=== PATIENT | male | born 1930 | race Caucasian/White ===

== ENCOUNTER 2016-09-13 14:15 | Outpatient (RCR) | payer MEDICARE ==
[~2016-09-13 14:15] MED LIST: ASPIRIN E.C. 8181 MG PO; ATIVAN0.5 MG PO; CEPHALEXIN500 M1 PO; ELITE MAGNESIUM1 TAB PO; FERROUS SULFATE27 MG PO; FOLIC ACID800 MCG PO; NORCO 325 MG-51 TAB PO; PAXIL PO; POTASSIUM BICA PO; PRILOSEC20 MG PO; ZINC15 MG PO
== END 2016-09-17 12:21 | disposition home or self-care (01) ==
LOC: WSPT 14:15
DX: H81.11 Benign paroxysmal vertigo, right ear (principal)
CPT/HCPCS: G8978-GP; G8979-GP; G8980-GP

== ENCOUNTER 2018-04-17 14:30 | Outpatient (RCR) | payer MEDICARE | END 2018-06-18 | disposition home or self-care (01) | LOC: WSC | DX: M76.811 Anterior tibial syndrome, right leg (principal); R29.898 Other symptoms and signs involving the musculoskeletal system; Z79.82 Long term (current) use of aspirin; Z79.899 Other long term (current) drug therapy | CPT/HCPCS: G0283-GP; G8978-GP; G8979-GP ==

== ENCOUNTER 2018-05-20 18:25 | Emergency (ER) | payer MEDICARE ==
[~2018-05-20] VITALS: Ht 177.8 cm; Wt 75.0 kg
[2018-05-20 18:33] VITALS: BP 124/76; TEMP 97.8
[2018-05-20 20:18] VITALS: PULSE 80
== END 2018-05-20 20:18 | disposition home or self-care (01) ==
LOC: COL.ER 18:25
DX: S22.41XA Multiple fractures of ribs, right side, initial encounter for closed fracture (principal); K21.9 Gastro-esophageal reflux disease without esophagitis; W01.10XA Fall on same level from slipping, tripping and stumbling with subsequent striking against unspecified object, initial encounter

== ENCOUNTER 2018-09-30 15:00 | Outpatient (RCR) | payer MEDICARE | END 2018-10-09 16:43 | disposition home or self-care (01) | LOC: WSPT 15:00 | DX: M25.551 Pain in right hip (principal); M79.604 Pain in right leg | CPT/HCPCS: G8978-GP; G8979-GP ==

== ENCOUNTER 2018-10-14 09:03 | Day surgery (SDC) | payer MEDICARE ==
[~2018-10-14] VITALS: Ht 177.8 cm; Wt 80.8 kg
[2018-10-14 10:23] VITALS: BP 129/81; PULSE 90; TEMP 97.1
[2018-10-14] MEDS ORDERED: ASPIRIN E.C. 8181 MG PO (10:36)
[2018-10-14] MEDS ORDERED: FOLIC ACID0.8 MG PO (10:36)
[2018-10-14] MEDS ORDERED: MAGNESIUM GLUC500 MG PO (10:37)
[2018-10-14] MEDS ORDERED: FLOMAX 0.40.4 MG/CAP PO (10:37)
[2018-10-14] MEDS ORDERED: KLOR-CON 1010 MEQ PO (10:38)
[2018-10-14] MEDS ORDERED: PRILOSEC 20MG20 MG PO (10:38)
[2018-10-14] MEDS ORDERED: LOPRESSOR 225 MG/TAB PO (10:39)
[2018-10-14] MEDS ORDERED: FERROUS SU325 MG/TAB PO (10:39)
[2018-10-14] MEDS ORDERED: PAXIL40 MG PO (10:40)
[2018-10-14 11:08] VITALS: BP 136/82; PULSE 77; TEMP 97.4
--- NOTE | 2018-10-14 11:08 | NUR ---
Pt to [facility] via cart from OR. Pt drowsy, but arouses to verbal stimuli. Son in room. Pt denies pain or nausea. Pt wanting to sleep. Refusing po fluids at this time. Will continue to monitor. Call light within reach.
[2018-10-14 11:15] VITALS: BP 134/86; PULSE 73
--- NOTE | 2018-10-14 11:15 | NUR ---
Pt resting. Denies needs at this time. Call light within reach.
[2018-10-14 11:30] VITALS: BP 140/92; PULSE 73
--- NOTE | 2018-10-14 11:30 | NUR ---
Pt c/o abdominal pain 05/28. Explained to pt that gas pain is normal and he needs to try to pass the gas if he can. Warm blanket applied to his abdomen. Will continue to monitor. Call light within reach.
[2018-10-14 11:45] VITALS: BP 155/91; PULSE 77
--- NOTE | 2018-10-14 11:45 | NUR ---
Pt passing gas. Pt reports he is starting to feel better. Pt denies needs. Call light within reach.
[2018-10-14 12:00] VITALS: BP 130/90; PULSE 79
--- NOTE | 2018-10-14 12:00 | NUR ---
Pt continues to rest. Continues to feel better and is passing more gas without difficulties. Pt denies need for food or fluids.
--- NOTE | 2018-10-14 12:25 | NUR ---
Pt up to restroom with 2 standby assist. Pt voids without difficulties. Small amount of blood on chux pad, and when pt wipes. Pt back to room. IV site discontinued with all parts intact. Discharge instructions reviewed. Pt voices understanding. Pt up to dress with assistance from his son.
--- NOTE | 2018-10-14 12:35 | NUR ---
Pt escorted to private car via wheel chair. Pt accompanied home by his son.
== END 2018-10-14 12:35 | disposition home or self-care (01) ==
LOC: SDCO 09:03
DX: D12.8 Benign neoplasm of rectum (principal); K57.30 Diverticulosis of large intestine without perforation or abscess without bleeding; Z85.46 Personal history of malignant neoplasm of prostate; Z90.79 Acquired absence of other genital organ(s); Z90.49 Acquired absence of other specified parts of digestive tract; F41.9 Anxiety disorder, unspecified; Z79.82 Long term (current) use of aspirin; Z79.899 Other long term (current) drug therapy; Z92.3 Personal history of irradiation; D64.9 Anemia, unspecified; I48.91 Unspecified atrial fibrillation; I95.1 Orthostatic hypotension; K21.9 Gastro-esophageal reflux disease without esophagitis; Z87.891 Personal history of nicotine dependence; Z80.9 Family history of malignant neoplasm, unspecified; Z86.73 Personal history of transient ischemic attack (TIA), and cerebral infarction without residual deficits; Z86.61 Personal history of infections of the central nervous system; R27.0 Ataxia, unspecified; N40.0 Benign prostatic hyperplasia without lower urinary tract symptoms; K62.89 Other specified diseases of anus and rectum
CPT/HCPCS: J2704; J7120

== ENCOUNTER 2019-02-03 03:37 | Emergency (ER) | payer MEDICARE ==
[~2019-02-03] VITALS: Ht 177.8 cm; Wt 77.3 kg
[~2019-02-03 03:37] MED LIST changes: +FERROUS SU325 MG/TAB PO; +FLOMAX 0.40.4 MG/CAP PO; +FOLIC ACID0.8 MG PO; +KLOR-CON 1010 MEQ PO; +LOPRESSOR 225 MG/TAB PO; +MAGNESIUM GLUC500 MG PO; +PAXIL40 MG PO; +PRILOSEC 20MG20 MG PO
[2019-02-03 03:42] VITALS: TEMP 96.8
[2019-02-03 04:03] LABS: BASO % 0.5 % (0.0-2.0); EOS # 0.1 (0.0-0.7); EOS % 1.5 % (0-4.0); GRAN # 1.7 (1.4-6.5); GRAN % 42.9 % (42.2-75.2); HEMATOCRIT 41.7 % (42.0-52.0); HEMOGLOBIN 13.7 g/dl (13.5-18.0); LYMPH # 1.5 (1.2-3.4); LYMPH % 38.5 % (20.0-51.0); MEAN CELL VOLUME 95 fl (80.0-100.0); MEAN CORPUSCULAR HEMOGLOBIN 31 pg (27.0-31.0); MEAN CORPUSCULAR HGB CONC 33 g/dl (33.0-37.0); MEAN PLATELET VOLUME 12.3 fl (7.4-10.4); MONO # 0.6 (0.1-0.6); MONO % 16.3 % (1.7-9.3); PLATELET COUNT 52 K/mm3 (130-400); RED BLOOD COUNT 4.37 M/mm3 (4.20-5.60); REDCELL DISTRIBUTION WIDTH-CV 14.4 % (11.5-14.5)
[2019-02-03 04:12] LABS: ALANINE AMINOTRANSFERASE 13 U/L (21-72); ALBUMIN 3.8 gm/dL (3.5-5.0); ALKALINE PHOSPHATASE 166 U/L (50-136); ANION GAP 11 mmol/L (7-16); AST,SGOT 37 U/L (15-37); BILIRUBIN,TOTAL 0.8 mg/dL (0.0-1.0); BLOOD UREA NITROGEN 23 mg/dL (9-20); CALCIUM 8.6 mg/dL (8.4-10.2); CARBON DIOXIDE 24 mmol/L (22-30); CHLORIDE 108 mmol/L (98-107); CREATININE, serum 0.87 (0.66-1.25); GLUCOSE 113 mg/dL (74-106); PHOSPHOROUS 3.2 mg/dL (2.5-4.5); POTASSIUM 3.4 mmol/L (3.4-5.0); SODIUM 143 mmol/L (137-145); TOTAL PROTEIN 7.8 gm/dL (6.4-8.2)
[2019-02-03 04:16] LABS: INR 1.2 (0.8-3.0); PROTHROMBIN TIME 14.6 SECONDS (9.7-12.8)
[2019-02-03 04:19] LABS: PARTIAL THROMBOPLASTIN TIME 37.2 SECONDS (26.0-37.0)
[2019-02-03 04:33] LABS: TROPONIN-I < 0.012 ng/mL (0.000-0.035)
[2019-02-03 05:22] LABS: COLLECTION METHOD CLEAN CATCH
[2019-02-03 05:32] LABS: MUCOUS Present /lpf; PH 6 (5-8); SQUAMOUS EPITHELIAL 0-2 /hpf; URINE APPEARANCE Clear; URINE BACTERIA None Seen /hpf; URINE BILIRUBIN Negative (NEGATIVE); URINE BLOOD Negative (NEGATIVE); URINE COLOR Yellow; URINE GLUCOSE Negative (NEGATIVE); URINE KETONE Negative (NEGATIVE); URINE LEUKOCYTE ESTERASE Negative (NEGATIVE); URINE NITRATE Negative (NEGATIVE); URINE PROTEIN(semi-quant) Negative (NEGATIVE); URINE RBC 0-2 /hpf; URINE UROBILINOGEN >=4.0 mg/dL (NEGATIVE)
[2019-02-03 07:30] VITALS: BP 145/89
[2019-02-03 07:40] VITALS: PULSE 82
== END 2019-02-03 07:40 | disposition home or self-care (01) ==
LOC: COL.ER 03:37
PROVIDERS: Emergency Medicine
DX: D69.6 Thrombocytopenia, unspecified (principal); R06.02 Shortness of breath; I48.91 Unspecified atrial fibrillation; K21.9 Gastro-esophageal reflux disease without esophagitis; I25.10 Atherosclerotic heart disease of native coronary artery without angina pectoris; Z79.82 Long term (current) use of aspirin
CPT/HCPCS: J3475; Q9967

== ENCOUNTER → 2019-03-11 | Outpatient (CLI) | payer MEDICARE ==
[~2019-03-11] VITALS: Ht 177.8 cm; Wt 78.5 kg
[~2019-03-11] MED LIST changes: +ALEVE 220MG220 MG PO
[2019-03-11 06:52] VITALS: BP 142/88; PULSE 77
[2019-03-11 08:06] VITALS: BP 139/83; PULSE 73
[2019-03-11 08:15] VITALS: BP 121/77; PULSE 80
[2019-03-11 08:16] VITALS: BP 129/70; PULSE 89
[2019-03-11 08:17] VITALS: BP 134/76; PULSE 90
[2019-03-11 08:18] VITALS: BP 139/77; PULSE 89
== END ==
LOC: COL.CARD 06:30
DX: I48.0 Paroxysmal atrial fibrillation (principal); I08.3 Combined rheumatic disorders of mitral, aortic and tricuspid valves
CPT/HCPCS: A9500; J2785